=== PATIENT | female | born 1980 | race Caucasian/White ===

== ENCOUNTER 2022-06-15 09:53 | Outpatient (CLI) | payer BC, SELFPAY ==
[2022-06-15 10:42] LABS: Anion Gap 7 mmol/L (8-16); Blood Urea Nitrogen 13 mg/dL (7-17); Calcium 8.8 mg/dL (8.4-10.2); Carbon Dioxide 27 mmol/L (22-30); Chloride 104 mmol/L (98-107); Cholesterol 244 mg/dL (0-200); Estimated Glomerular Filt Rate > 60; Glucose 108 mg/dL (65-110); HDL Direct 48 mg/dL; Potassium 4.2 mmol/L (3.4-5.0); Sodium 138 mmol/L (137-145); Triglycerides 64 mg/dL (<150)
[2022-06-15 10:53] LABS: LDL Cholesterol Direct 151 mg/dL
== END 2022-06-15 09:54 | disposition home or self-care (01) ==
LOC: ANHLAB 09:56
PROVIDERS: PCP Family Medicine; Visit Provider Family Medicine
DX: Z00.8 Encounter for other general examination (principal)
CPT/HCPCS: 36415; 80048; 80061

== ENCOUNTER → 2022-08-28 10:47 | Outpatient (CLI) | payer BC, SELFPAY ==
--- NOTE | ~2022-08-28 | MM_ITS ---
EXAMINATION: MM screening coby BI w brady HISTORY: Screening mammogram TECHNIQUE: Craniocaudal and mediolateral oblique 3-D tomosynthesis images were obtained and synthetic 2-D images were generated. CAD analysis was submitted and interpreted. COMPARISON: No prior mammogram is available for comparison at this institution. BREAST PARENCHYMAL COMPOSITION: The breasts are heterogeneously dense, which may obscure small masses . FINDINGS: There is an asymmetric approximately 9 mm circumscribed opacity in the posterior upper mid right breast. Another asymmetric 9 mm density is noted in the posterior upper inner right breast (MLO Tomosynthesis image 53/77; craniocaudal Tomosynthesis image 52/76). Diagnostic right mammogram and right breast ultrasound examination are recommended. Otherwise there is no evidence of suspicious mass, calcification, or architectural distortion to sugg est malignancy in either breast. IMPRESSION: 1. 9 mm asymmetric mass in posterior upper mid right breast 2. Diagnostic right mammogram and right breast ultrasound examination are recommended BI-RADS Category 0: Incomplete: Needs additional imaging evaluation. Reviewed, dictated and finalized at location A. ILING MACHINE SET UP OPERATOR TOOL IMPRESSION: 1. 9 mm asymmetric mass in posterior upper mid right breast 2. Diagnostic right mammogram and right breast ultrasound examination are recom mended BI-RADS Category 0: Incomplete: Needs additional imaging evaluation.
== END ==
PROVIDERS: PCP Family Medicine; Visit Provider Family Medicine
DX: Z12.31 Encounter for screening mammogram for malignant neoplasm of breast (principal); R92.8 Other abnormal and inconclusive findings on diagnostic imaging of breast
CPT/HCPCS: 77063; 77067

== ENCOUNTER → 2022-09-12 08:25 | Outpatient (CLI) | payer BC, SELFPAY ==
--- NOTE | ~2022-09-12 | MMUS_ITS ---
EXAMINATION: MM diagnostic coby RT w brady, US breast RT complete HISTORY: 9 mm asymmetric mass in posterior upper mid right breast on 08/28/2022 screening mammogram ex amination TECHNIQUE: Additional 3-D tomosynthesis images of the right breast were performed and synthetic 2-D i mages were generated. CAD analysis was submitted and interpreted. High resolution complete right [place] st ultrasound including all 4 quadrants and subareolar area was performed. COMPARISON: 08/28/2022 bilateral screening mammogram FINDINGS: MAMMOGRAPHIC FINDINGS: An approximately 9 x 11 mm irregular mass is noted posteriorly in the upper inner right breast in the 12:00-1:00 area. No other suspicious mass is noted but the heterogeneously dense stroma may obscure masses. ULTRASOUND: 1:00 9 cm from nipple: Approximately 5 x 9.5 mm irregular hypoechoic mass is noted, with prominent in ternal vascularity. Ultrasound-guided biopsy is recommended. 7:00 5 cm from nipple: 2.7 mm cyst 9:00 7 cm from nipple: 2.9 mm x 4.4 cyst IMPRESSION: 1. Suspicious mass at 1:00 9 cm from nipple 2. Ultrasound-guided biopsy of right breast 1:00 lesion is recommended BI-RADS category 4, suspicious findings. Dr. Estes telephoned the report and ultrasound-guided biopsy recommendation for the right breast 1:00 lesion on 09/12/2022 at 1011 hours to Physician Espinoza Fabian Reviewed, dictated and finalized at location A. DISPLAYS ANALYST IMPRESSION: 1. Suspicious mass at 1:00 9 cm from nipple 2. Ultrasound-guided biopsy of right breast 1:00 lesion is recommended BI-RADS category 4, suspicious findings. Dr. Estes telephoned the report and ultrasound-guided biopsy recommendation for the right breast 1:00 lesion on 09/12/2022 at 1011 hours to Physician Rossana Fabian ssistant
== END ==
PROVIDERS: PCP Family Medicine; Visit Provider Physician Assistant
DX: R92.8 Other abnormal and inconclusive findings on diagnostic imaging of breast (principal)
CPT/HCPCS: 76641; 77061; 77065; G0279

== ENCOUNTER 2022-09-21 09:16 | Outpatient (CLI) | payer BC, SELFPAY ==
--- NOTE | ~2022-09-21 | MMUS_ITS ---
EXAMINATION: US breast biopsy RT w image, MM post biopsy invasive RT DATE: 09/21/2022 12:10 (accession [id number]), 09/21/2022 11:08 (accession [id number]) INDICATION: Indeterminate mass at the 1:00 location of the right breast. Ultrasound-guided core biops y is requested to evaluate for malignancy. TECHNIQUE AND FINDINGS: The risks and potential benefits of the procedure were discussed with the patient including bleeding and infection. A time out was performed. The skin of the right breast was prepared and draped in usua l sterile fashion. Lidocaine was used for superficial anesthesia. Lidocaine with epinephrine was used for deep anesthesia. A vacuum-assisted biopsy needle was advanced through to the outer edge of the region of interest from a lateral approach utilizing sonographic guidance. A total of three tissue core samples were obtaine d through the lesion. A tissue marker clip was then placed at the biopsy site. Hemostasis was achieve d. A sterile bandage was applied. The patient tolerated procedure well and there was no evidence of immediate complication. The patient was given verbal instructions to return to the Emergency Department in the event of severe breast pa in or rapid breast enlargement. A two view right breast mammogram was obtained to document tissue mar ker clip placement. IMPRESSION: 1. Successful ultrasound-guided vacuum-assisted biopsy of right breast mass with tissue marker placem ent. Reviewed, dictated and finalized at location A. IFIED PROFESSIONAL CODER IMPRESSION: 1. Successful ultrasound-guided vacuum-assisted biopsy of right breast mass wit h tissue marker placement.
== END 2022-09-21 09:17 | disposition home or self-care (01) ==
PROVIDERS: PCP Family Medicine; Visit Provider Family Medicine
DX: R92.8 Other abnormal and inconclusive findings on diagnostic imaging of breast (principal)
CPT/HCPCS: 19083; 88305; A4648

== ENCOUNTER 2023-01-17 15:13 | Emergency (ER) | payer OTHER, SELFPAY ==
--- NOTE | ~2023-01-17 | XR_ITS ---
EXAMINATION: XR lumbar spine 2-3V DATE: 01/17/2023 17:03 INDICATION: Low back pain TECHNIQUE: Anteroposterior and lateral views of the lumbar spine, and cone-down lateral view of the l umbosacral junction were obtained. COMPARISON: None. FINDINGS: No fracture, dislocation, or subluxation. The vertebral body heights and intervertebral dis c spaces are normal. There is moderate facet joint osteoarthritis of the lower lumbar spine. The rojelio l gas pattern is normal. IMPRESSION: 1. Moderate facet joint osteoarthritis of the lower lumbar spine. Reviewed, dictated and finalized at location F.
[2023-01-17 15:27] VITALS: BP 121/95; PULSE 115; RESP 20; TEMP 36.8; O2SAT 97
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
[2023-01-17 17:34] VITALS: BP 111/74; PULSE 89; RESP 16; O2SAT 99
== END 2023-01-17 17:35 | disposition home or self-care (01) ==
PROVIDERS: Emergency Provider Emergency Medicine; PCP Family Medicine
DX: S39.012A Strain of muscle, fascia and tendon of lower back, initial encounter (principal); V43.52XA Car driver injured in collision with other type car in traffic accident, initial encounter; Y92.411 Interstate highway as the place of occurrence of the external cause
CPT/HCPCS: 72100; 99283

== ENCOUNTER → 2023-05-29 07:52 | Outpatient (CLI) | payer BC, SELFPAY ==
--- NOTE | ~2023-05-29 | MMUS_ITS ---
EXAMINATION: MM diagnostic coby RT w brady, US breast RT limited HISTORY: Six-month follow-up after benign right breast biopsy TECHNIQUE: Craniocaudal, mediolateral, and mediolateral oblique 3-D tomosynthesis images of the right breast were performed and synthetic 2-D images were generated. CAD analysis was submitted and interp reted. High resolution limited right breast ultrasound was performed. COMPARISON: 09/12/2022, 08/28/2022 BREAST PARENCHYMAL COMPOSITION: The breasts are heterogeneously dense, which may obscure small masses . FINDINGS: MAMMOGRAPHIC FINDINGS: There is a stable oval, circumscribed, low density mass in the far posterior third right breast corre sponding to the previously biopsied mass. There has been no suspicious interval change. ULTRASOUND: There is a stable 8 mm x 5 mm oval, circumscribed, parallel, hypoechoic mass with no posterior featur es or internal vascularity at the 1:00 location 9 cm from the nipple corresponding to the previously biopsied mass. There has been no suspicious interval change. IMPRESSION: 1. Stable, previously biopsied right breast mass. 2. Routine screening mammography is recommended, due in August. BI-RADS Category 2: Benign finding(s). Reviewed, dictated and finalized at location A. IMPRESSION: 1. Stable, previously biopsied right breast mass. 2. Routine screening mammography is recommended, due in August. BI-RADS Category 2: Benign finding(s).
== END ==
PROVIDERS: PCP Family Medicine; Visit Provider Physician Assistant
DX: R92.8 Other abnormal and inconclusive findings on diagnostic imaging of breast (principal)
CPT/HCPCS: 76642; 77061; 77065; G0279

== ENCOUNTER 2023-09-17 09:57 | Outpatient (CLI) | payer BC, SELFPAY ==
[2023-09-17 10:32] LABS: Basophils Percent Auto 0.5 % (0.2-1.2); Eosinophils Absolute Auto 0.1 K/mm3 (0-0.3); Eosinophils Percent Auto 0.8 % (0-4.4); Hematocrit 42.7 % (37.0-47.0); Hemoglobin 13.7 g/dL (12.0-15.0); Immature Granulocyte Absolute 0.02 K/mm3 (0.00-0.031); Immature Granulocyte Percent A 0.3 % (0-0.5); Lymphocytes Absolute Auto 1.88 K/mm3 (0.9-3.2); Lymphocytes Percent Auto 29.5 % (18.3-44.2); Mean Corpuscular HGB Conc 32.1 g/dl (32-36); Mean Corpuscular Hemoglobin 31.6 pg (26-34); Mean Corpuscular Volume 98.6 fl (80-100); Mean Platelet Volume 10.2 fl (7.4-10.4); Monocytes Absolute Auto 0.4 K/mm3 (0.1-0.6); Monocytes Percent Auto 5.6 % (2.6-8.5); Neutrophils Percent Auto 63.3 % (45.5-73.1); Platelet Count Result 267 k/mm3 (150-375); Red Blood Count 4.33 M/mm3 (4.2-5.4); Red Cell Distribution Width 12.9 % (11.5-14.5); White Blood Count 6.4 K/mm3 (4.5-10.0)
[2023-09-17 10:44] LABS: Alanine Aminotransferase 18 U/L (6-35); Albumin Level 4.2 g/dL (3.5-5.1); Alkaline Phosphatase 42 U/L (38-126); Anion Gap 8 mmol/L (8-16); Aspartate Amino Transferase 20 U/L (14-36); Bilirubin,Total 0.6 mg/dL (0.2-1.3); Blood Urea Nitrogen 15 mg/dL (7-17); Calcium 9.1 mg/dL (8.4-10.2); Carbon Dioxide 26 mmol/L (22-30); Chloride 105 mmol/L (98-107); Cholesterol 255 mg/dL (0-200); Estimated Glomerular Filt Rate > 60; Glucose 93 mg/dL (65-110); HDL Direct 43 mg/dL; Sodium 139 mmol/L (137-145); Triglycerides 116 mg/dL (<150)
[2023-09-17 10:55] LABS: LDL Cholesterol Direct 155 mg/dL
== END 2023-09-17 09:58 | disposition home or self-care (01) ==
LOC: ANHLAB 09:58
PROVIDERS: PCP Family Medicine; Visit Provider Physician Assistant
DX: Z13.220 Encounter for screening for lipoid disorders (principal); Z00.8 Encounter for other general examination
CPT/HCPCS: 36415; 80053; 80061; 85025

== ENCOUNTER → 2023-09-17 12:18 | Outpatient (CLI) | payer BC, SELFPAY ==
--- NOTE | ~2023-09-17 | MM_ITS ---
EXAMINATION: MM screening coby BI w brady HISTORY: Screening mammogram TECHNIQUE: Craniocaudal and mediolateral oblique 3-D tomosynthesis images were obtained and synthetic 2-D images were generated. CAD analysis was submitted and interpreted. COMPARISON: 05/29/2023 diagnostic right mammogram and limited right breast ultrasound 09/21/2022 right ultrasound-guided breast biopsy 09/12/2022 diagnostic right mammogram and complete right breast ultrasound examination 08/28/2022 bilateral screening mammogram BREAST PARENCHYMAL COMPOSITION: The breasts are heterogeneously dense, which may obscure small masses . FINDINGS: There is a stable posterior upper mid right breast approximately 8-9 mm circumscribed opaci ty with nearby biopsy marker; history of prior benign right breast biopsy September 21, 2022. Otherwise there is no evidence of suspicious mass, calcification, or architectural distortion to sugg est malignancy in either breast. There has been no suspicious interval change. IMPRESSION: 1. No mammographic evidence of malignancy. 2. Recommend routine screening mammography in one year. BI-RADS Category 2: Benign finding(s). Reviewed, dictated and finalized at location A. NET DEVELOPER
== END ==
PROVIDERS: PCP Physician Assistant; Visit Provider Physician Assistant
DX: Z12.31 Encounter for screening mammogram for malignant neoplasm of breast (principal)
CPT/HCPCS: 77063; 77067